=== PATIENT | female | born 1980 | race American Indian/Alaskan Native ===

== ENCOUNTER 2018-03-06 12:07 | Emergency (ER) | payer OTHER ==
--- NOTE | 2018-03-06 12:57 | Emergency Department Report ---
ED Lower Extremity HPI - General Chief Complaint: Extremity Injury, Lower Stated Complaint: LEFT LEG/PAIN Time Seen by Provider: 03/06/18 12:48 Source: patient Mode of arrival: Ambulatory Limitations: No Limitations - History of Present Illness Initial Comments: Patient is a 37-year-old female with no significant past medical history. Patient presented to the ER complaining of left leg pain as being on for 1 week. Patient stated that she has been small injury when she stepped on something one week ago and since then she started having the pain she also stated that she is worried about blood clots she went to her primary care physician was advised to get ultrasound. Patient denied any fever, nausea or vomiting. No shortness of breath or chest pain. - Related Data Allergies Allergy/AdvReac Type Severity Reaction Status Date / Time No Known Allergies Allergy Unverified 03/06/18 12:12 ED Review of Systems ROS: Stated complaint: LEFT LEG/PAIN Other details as noted in HPI Comment: All other systems reviewed and negative Respiratory: denies: cough, shortness of breath, SOB with exertion Cardiovascular: denies: chest pain, palpitations Gastrointestinal: denies: abdominal pain, nausea Neurological: denies: headache, weakness ED Past Medical Hx - Past Medical History Hx Psychiatric Treatment: Yes Additional medical history: anemia, celiac, hypotension - Surgical History Additional Surgical History: C/S - Social History Smoking Status: Never Smoker Substance Use Type: None ED Physical Exam - General Limitations: No Limitations General appearance: alert, in no apparent distress - Head Head exam: Present: atraumatic, normocephalic - ENT ENT exam: Present: normal exam, normal orophraynx, mucous membranes moist - Neck Neck exam: Present: normal inspection, full ROM. Absent: tenderness, meningismus, lymphadenopathy - Respiratory Respiratory exam: Present: normal lung sounds bilaterally. Absent: wheezes, rales, prolonged expiratory - Cardiovascular Cardiovascular Exam: Present: regular rate, normal heart sounds - GI/Abdominal GI/Abdominal exam: Present: soft. Absent: distended, tenderness, guarding, rebound - Extremities Exam Extremities exam: Present: normal inspection, full ROM, normal capillary refill. Absent: tenderness, pedal edema, calf tenderness - Back Exam Back exam: Present: normal inspection, full ROM - Neurological Exam Neurological exam: Present: alert, oriented X3, CN II-XII intact, normal gait - Skin Skin exam: Present: warm, intact, normal color ED Course Vital Signs 03/06/18 03/06/18 03/06/18 12:12 13:26 13:30 Temperature 99.1 F Pulse Rate 117 H 71 84 Respiratory 16 15 19 Rate Blood Pressure 106/76 115/76 O2 Sat by Pulse 100 100 Oximetry 03/06/18 03/06/18 03/06/18 13:45 14:00 14:15 Temperature Pulse Rate 74 74 69 Respiratory 28 H 23 16 Rate Blood Pressure 107/73 111/78 111/75 O2 Sat by Pulse 99 100 100 Oximetry 03/06/18 03/06/18 14:30 14:45 Temperature Pulse Rate 70 Respiratory 17 21 Rate Blood Pressure 114/76 126/81 O2 Sat by Pulse 100 99 Oximetry ED Lower Extremity MDM - Medical Decision Making Patient d-dimer is negative. Believe this is most likely an infection from her region. Given this patient low low probability and a negative d-dimer, I believe DVT is unlikely. I will start patient on Keflex and advised patient to follow up with her primary care physician and to return to the ER if her symptoms return. Critical care attestation.: If time is entered above; I have spent that time in minutes in the direct care of this critically ill patient, excluding procedure time. ED Disposition Clinical Impression: Left leg pain Disposition: DC-01 TO HOME OR SELFCARE Is pt being admited?: No Condition: Stable Instructions: Musculoskeletal Pain (ED) Referrals: PRIMARY CARE, [Primary Care Provider] - 3-5 Days
[2018-03-06 15:03] VITALS: BP 126/81
== END 2018-03-06 16:39 | disposition home or self-care (01) ==
LOC: ED 12:07
DX: M79.605 Pain in left leg (principal)
CPT/HCPCS: 36415; 85379

== ENCOUNTER 2020-08-28 15:32 | Emergency (ER) | payer BC ==
[2020-08-28 15:43] VITALS: BP 128/71
--- NOTE | 2020-08-28 16:35 | Cat Scan Report ---
. CT head/brain wo con INDICATION / CLINICAL INFORMATION: 40 years Female; head injury. TECHNIQUE: Routine CT head without contrast. All CT scans at this location are performed using CT dos e reduction for ALARA by means of automated exposure control. COMPARISON: None. FINDINGS: BRAIN / INTRACRANIAL CONTENTS: The brain appears to demonstrate appropriate attenuation. The ventricu lar system is within normal limits in size and configuration. There is no clear CT evidence of acute intracranial hemorrhage or significant mass effect. ORBITS: No significant abnormality of visualized orbits. SINUSES / MASTOIDS: No significant abnormality in the visualized paranasal sinuses or mastoid air carmina ls. CRANIOCERVICAL JUNCTION: No significant abnormality. ADDITIONAL FINDINGS: None. IMPRESSION: 1. There is no CT evidence of acute intracranial process. Signer Name: Marek Castellano MD Signed: 08/28/2020 4:30 PM Workstation Name: [id number]
[2020-08-28] MEDS ORDERED: METOCLOPRAMIDE 10 MG TAB PO ONE (18:27)
[2020-08-28] MEDS ORDERED: ACETAMINOPHEN 500 MG TAB PO ONE (18:27)
[2020-08-28] MEDS ORDERED: diphenhydrAMINE 25 MG CAP PO ONE (18:27)
[2020-08-28] MEDS ORDERED: dexAMETHasone 20 MG/5 ML VIAL IM ONE (18:27)
--- NOTE | 2020-08-28 18:32 | Emergency Department Report ---
ED General Adult HPI - General Chief complaint: Head Injury Stated complaint: HEAD INJURY Source: patient Mode of arrival: Ambulatory Limitations: No Limitations - History of Present Illness Initial comments: Patient is a 40-year-old -[place] female who presents for frontal headache and neck pain status post closed blunt head trauma 1 week ago. Patient states her trunk fell on her head. There was no LOC at the time, no laceration, no bleeding, there has been no nausea /vomiting, patient does complain of headache with intermittent dizziness dizziness, and mild photophobia. Symptoms rated at 4/10. 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 Patient drove self to ED, patient is ambulatory with steady gait. Patient is alert and oriented x3. States headache is intermittent and recurrent, symptoms temporarily improved with Tylenol products. - Related Data Previous Rx's Medication Instructions Recorded Last Taken Type cephALEXin [Keflex] 500 mg PO Q8HR #28 cap 03/06/18 Unknown Rx Cyclobenzaprine [Flexeril 10 MG 10 mg PO BID #20 tablet 09/11/19 Unknown Rx TAB] Naproxen [Naprosyn TAB] 500 mg PO BID #30 tablet 09/11/19 Unknown Rx Acetaminophen [Acetaminophen TAB] 1,000 mg PO Q6HR PRN #30 tablet 08/28/20 Unknown Rx Metoclopramide [Reglan] 10 mg PO Q8H PRN #30 tab 08/28/20 Unknown Rx diphenhydrAMINE [Benadryl CAP] 25 mg PO Q8HR PRN #30 capsule 08/28/20 Unknown Rx Allergies Allergy/AdvReac Type Severity Reaction Status Date / Time No Known Allergies Allergy Unverified 03/06/18 12:12 ED Review of Systems ROS: Stated complaint: HEAD INJURY Other details as noted in HPI Constitutional: denies: chills, fever Eyes: eye pain (bilat photophobia ) ENT: denies: ear pain, throat pain Respiratory: denies: cough, shortness of breath, wheezing Cardiovascular: denies: chest pain, palpitations Endocrine: no symptoms reported Gastrointestinal: denies: abdominal pain, nausea, vomiting, diarrhea Genitourinary: denies: urgency, dysuria, discharge Musculoskeletal: denies: back pain, joint swelling, arthralgia Skin: denies: rash, lesions Neurological: headache, weakness, vertigo. denies: numbness, paresthesias, confusion, abnormal gait Psychiatric: denies: anxiety, depression Hematological/Lymphatic: denies: easy bleeding, easy bruising ED Past Medical Hx - Past Medical History Previous Medical History?: Yes Hx Psychiatric Treatment: Yes Additional medical history: anemia, celiac, hypotension, pericarditis - Surgical History Past Surgical History?: Yes Additional Surgical History: C section - Social History Smoking Status: Never Smoker Substance Use Type: None - Medications Home Medications: Home Medications Medication Instructions Recorded Confirmed Last Taken Type cephALEXin [Keflex] 500 mg PO Q8HR #28 cap 03/06/18 Unknown Rx Cyclobenzaprine [Flexeril 10 MG 10 mg PO BID #20 tablet 09/11/19 Unknown Rx TAB] Naproxen [Naprosyn TAB] 500 mg PO BID #30 tablet 09/11/19 Unknown Rx Acetaminophen [Acetaminophen TAB] 1,000 mg PO Q6HR PRN #30 tablet 08/28/20 Unknown Rx Metoclopramide [Reglan] 10 mg PO Q8H PRN #30 tab 08/28/20 Unknown Rx diphenhydrAMINE [Benadryl CAP] 25 mg PO Q8HR PRN #30 capsule 08/28/20 Unknown Rx ED Physical Exam - General Limitations: No Limitations General appearance: alert, in no apparent distress - Head Head exam: Present: normocephalic, normal inspection - Expanded Head Exam Expanded Head exam: Present: contusion (frontal ). Absent: laceration, abrasion, hematoma, racoon eyes, ferrer's sign, general tenderness, tenderness of temporal artery - Eye Eye exam: Present: PERRL, EOMI. Absent: conjunctival injection, nystagmus Pupils: Present: normal accommodation - ENT ENT exam: Present: normal orophraynx, mucous membranes moist, TM's normal bilaterally, normal external ear exam - Neck Neck exam: Present: normal inspection, tenderness (right lateral paraspinus muscle tenderness to deep palpation, rom intact and unrestricted to all quads. no posterior vertebral point tenderness ), full ROM - Expanded Neck Exam Expanded Neck exam: Absent: midline deformity, anterior neck swelling, thyroid mass, carotid bruit, tracheal deviation - Respiratory Respiratory exam: Present: normal lung sounds bilaterally. Absent: respiratory distress, wheezes, chest wall tenderness - Cardiovascular Cardiovascular Exam: Present: regular rate, normal rhythm, normal heart sounds. Absent: systolic murmur, diastolic murmur, rubs, gallop - GI/Abdominal GI/Abdominal exam: Present: soft, normal bowel sounds. Absent: distended, tenderness - Rectal Rectal exam: Present: deferred - Extremities Exam Extremities exam: Present: normal inspection, full ROM, normal capillary refill. Absent: tenderness - Back Exam Back exam: Present: normal inspection, full ROM, muscle spasm. Absent: tenderness, paraspinal tenderness, vertebral tenderness - Neurological Exam Neurological exam: Present: alert, oriented X3, CN II-XII intact, normal gait, reflexes normal. Absent: motor sensory deficit - Expanded Neurological Exam Expanded Patient oriented to: Present: person, place, time Speech: Present: fluid speech Upper motor neuron: Pronator Drift: Normal Motor strength exam: RUE: 5, LUE: 5, RLE: 5, LLE: 5 DTR: knee (R): 2+, knee (L): 2+ Best Eye Response ([place]): (4) open spontaneously Best Motor Response ([place]): (6) obeys commands Best Verbal Response ([place]): (5) oriented Joce Total: 15 - Psychiatric Psychiatric exam: Present: normal affect, normal mood - Skin Skin exam: Present: warm, dry, intact, normal color. Absent: rash ED Course Vital Signs 08/28/20 15:40 Temperature 98.1 F Pulse Rate 103 H Respiratory 18 Rate Blood Pressure 128/71 O2 Sat by Pulse 100 Oximetry ED Medical Decision Making - Radiology Data Radiology results: report reviewed, image reviewed . CT head/brain wo con INDICATION / CLINICAL INFORMATION: 40 years Female; head injury. TECHNIQUE: Routine CT head without contrast. All CT scans at this location are performed using CT dose reduction for ALARA by means of automated exposure control. COMPARISON: None. FINDINGS: BRAIN / INTRACRANIAL CONTENTS: The brain appears to demonstrate appropriate attenuation. The ventricular system is within normal limits in size and configuration. There is no clear CT evidence of acute intracranial hemorrhage or significant mass effect. ORBITS: No significant abnormality of visualized orbits. SINUSES / MASTOIDS: No significant abnormality in the visualized paranasal sinuses or mastoid air cells. CRANIOCERVICAL JUNCTION: No significant abnormality. ADDITIONAL FINDINGS: None. IMPRESSION: 1. There is no CT evidence of acute intracranial process. Signer Name: Marek Castellano MD Signed: 08/28/2020 4:30 PM Workstation Name: [id number] Transcribed By: MR Dictated By: Marek Castellano MD Electronically Authenticated By: Marek Castellano MD Signed Date/Time: 08/28/20 163 DD/ 26 TD/TT: FINDINGS: No soft tissue swelling is seen. No fractures or subluxation are noted. Disc spaces are maintained. Odontoid is not well seen on odontoid projection despite 2 attempts. Signer Name: Dakota Graham MD Signed: 08/28/2020 6:57 PM Workstation Name: [id number] Transcribed By: GJ Dictated By: Dakota Graham MD Electronically Authenticated By: Dakota Graham MD Signed Date/Time: 08/28/201856 DD/ 54 TD/TT: - Medical Decision Making CT normal no soft abnormality, C-spine x-ray normal no fracture no soft tissue abnormality. Tissue no mass no bleed. Plan DC to home follow-up with PCP in 2 to 3 days. Patient given closed head injury precautions. Neuro exam is normal headache is improved. Patient is alert oriented x3 with steady gait with no acute distress at this time patient DC'd home in stable condition. at 1900 hrs , pt is DNA x 3 , LWT, did not answer phone contact attempt. Critical care attestation.: If time is entered above; I have spent that time in minutes in the direct care of this critically ill patient, excluding procedure time. ED Disposition Clinical Impression: Headache Qualifiers: Headache type: unspecified Headache chronicity pattern: acute headache Intractability: not intractable Qualified Code(s): R51.9 - Headache, unspecified Minor head injury without loss of consciousness Qualifiers: Encounter type: initial encounter Qualified Code(s): S09.90XA - Unspecified injury of head, initial encounter Disposition: ELOPED Is pt being admited?: No Does the pt Need Aspirin: No Condition: Stable Instructions: Cluster Headache Prescriptions: Acetaminophen [Acetaminophen TAB] 1,000 mg PO Q6HR PRN #30 tablet PRN Reason: Headache diphenhydrAMINE [Benadryl CAP] 25 mg PO Q8HR PRN #30 capsule PRN Reason: Headache Metoclopramide [Reglan] 10 mg PO Q8H PRN #30 tab PRN Reason: Headache Referrals: QUINCY GUERRERO MD [Primary Care Provider] - 3-5 Days Forms: Work/School Release Form(ED) Time of Disposition: 19:00
--- NOTE | 2020-08-28 19:01 | XRay Report ---
CERVICAL SPINE 3 VIEWS 1849 INDICATION: neck pain s/p closed head injury COMPARISON: None available. FINDINGS: No soft tissue swelling is seen. No fractures or subluxation are noted. Disc spaces are kelsey ntained. Odontoid is not well seen on odontoid projection despite 2 attempts. Signer Name: Dakota Graham MD Signed: 08/28/2020 6:57 PM Workstation Name: [id number]
== END 2020-08-28 20:45 | disposition left against medical advice (07) ==
LOC: ED 15:32
DX: S09.90XA Unspecified injury of head, initial encounter (principal); Z79.899 Other long term (current) drug therapy; W19.XXXA Unspecified fall, initial encounter; Y93.89 Activity, other specified; Y92.89 Other specified places as the place of occurrence of the external cause; Y99.8 Other external cause status
CPT/HCPCS: 70450; 72040; 99283

== ENCOUNTER 2021-01-15 16:23 | Emergency (ER) | payer BC ==
[2021-01-15 16:36] VITALS: BP 114/71
--- NOTE | 2021-01-15 18:11 | Event Note ---
ED Screening Note Date of service: 01/15/21 Time: 18:09 ED Screening Note: 10-year-old female was brought to the ER today by EMS with complaints of chest pain. Patient reports pain on her left breast and to upper abdomen. She states that she has had this pain for several years but it got worse today while she was at her doctor's office and her doctor's office called 911 to be brought here to the ER. Patient states that since has been having the pain for the past several years she was told by her primary care doctor that her pain could be related to pericarditis and that was in 2016. She did see a liquefaction plant operator once recommended doing a stress test and echo but she states due to lack of insurance she did not follow-up to have the test done. She states that she has been ill with the pain with ibuprofen. In addition to the worsening chest pain today she reports nausea but she also has a history of chronic nausea which she takes Phenergan for, she reports a little bit of a cough and daily shortness of breath no worse today and lightheadedness today. Past medical history significant for hypertension, chronic back pain secondary to sciatica and chronic nausea. This initial assessment/diagnostic orders/clinical plan/treatment(s) is/are subject to change based on patients health status, clinical progression and re- assessment by fellow clinical providers in the ED. Further treatment and workup at subsequent clinical providers discretion. Patient/guardian urged not to elope from the ED as their condition may be serious if not clinically assessed and managed. Initial orders include: Chest pain order set
[2021-01-15 18:36] LABS: Basophils % (Auto) 0.7 % (0.0-1.8); Eosinophils # (Auto) 0.1 K/mm3 (0.0-0.4); Eosinophils % (Auto) 1.1 % (0.0-4.3); Hematocrit 28.2 % (30.3-42.9); Hemoglobin 8.6 gm/dl (10.1-14.3); Lymphocytes # (Auto) 1.5 K/mm3 (1.2-5.4); Lymphocytes % (Auto) 22.4 % (13.4-35.0); Mean Corpuscular HGB Conc 31 % (30-34); Monocytes # (Auto) 0.3 K/mm3 (0.0-0.8); Monocytes % (Auto) 4.6 % (0.0-7.3); Platelet Count 355 K/mm3 (140-440); Red Blood Count 4.25 M/mm3 (3.65-5.03); Red Cell Distribution Width 19.8 % (13.2-15.2)
[2021-01-15 18:45] LABS: Mean Corpuscular Volume 66 fl (79-97)
--- NOTE | 2021-01-15 18:53 | XRay Report ---
CHEST 2 VIEWS INDICATION / CLINICAL INFORMATION: Chest Pain. FINDINGS: SUPPORT DEVICES: None. HEART / MEDIASTINUM: No significant abnormality. LUNGS / PLEURA: No significant pulmonary or pleural abnormality. No pneumothorax. ADDITIONAL FINDINGS: No significant additional findings. IMPRESSION: 1. No acute findings. Signer Name: Lorenzo Pearson MD Signed: 01/15/2021 6:48 PM Workstation Name: [id number]
[2021-01-15 18:55] LABS: Alanine Aminotransferase 21 units/L (7-56); Albumin 4.6 g/dL (3.9-5); Blood Urea Nitrogen 11 mg/dL (7-17); Calcium 8.6 mg/dL (8.4-10.2); Hemolysis Index 0; INR 0.92 (0.87-1.13); Partial Thromboplastin Time 27.5 Sec. (24.2-36.6)
[2021-01-15 18:56] LABS: BUN/Creatinine Ratio 18
--- NOTE | 2021-01-15 21:23 | Emergency Department Report ---
ED Chest Pain HPI - General Chief Complaint: Chest Pain Stated Complaint: CHEST DISCOMFORT Time Seen by Provider: 01/15/21 21:02 Source: patient Mode of arrival: Ambulatory Limitations: No Limitations - History of Present Illness Initial Comments: 40-year-old -[place] female presents emerged department complaining of chest pain which has been present for multiple years more than 3 and she was evaluated at her doctor's office today for routine check and was found to have a possible hemoglobin around 7. She reports no vaginal bleeding, no easy bruising, no pain is bleeding, no palpitation, shortness of breath, presyncope, fever, chills, sweats. MD Complaint: chest pain Severity scale (0 -10): 8 - Related Data Previous Rx's Medication Instructions Recorded Last Taken Type cephALEXin [Keflex] 500 mg PO Q8HR #28 cap 03/06/18 Unknown Rx Cyclobenzaprine [Flexeril 10 MG 10 mg PO BID #20 tablet 09/11/19 Unknown Rx TAB] Naproxen [Naprosyn TAB] 500 mg PO BID #30 tablet 09/11/19 Unknown Rx Acetaminophen [Acetaminophen TAB] 1,000 mg PO Q6HR PRN #30 tablet 08/28/20 Unknown Rx Metoclopramide [Reglan] 10 mg PO Q8H PRN #30 tab 08/28/20 Unknown Rx diphenhydrAMINE [Benadryl CAP] 25 mg PO Q8HR PRN #30 capsule 08/28/20 Unknown Rx Allergies Allergy/AdvReac Type Severity Reaction Status Date / Time No Known Allergies Allergy Unverified 03/06/18 12:12 Heart Score - HEART Score History: Slightly suspicious EKG: Normal Age: < 45 Risk factors: 1-2 risk factors Troponin: < normal limit HEART Score: 1 - EKG Read Time Time EKG Completed: 16:48 EKG Read Time: 16:57 ED Review of Systems ROS: Stated complaint: CHEST DISCOMFORT Other details as noted in HPI Comment: All other systems reviewed and negative ED Past Medical Hx - Past Medical History Previous Medical History?: Yes Hx Psychiatric Treatment: Yes Additional medical history: anemia, celiac, hypotension, pericarditis - Surgical History Past Surgical History?: Yes Additional Surgical History: C section - Social History Smoking Status: Never Smoker Substance Use Type: None - Medications Home Medications: Home Medications Medication Instructions Recorded Confirmed Last Taken Type cephALEXin [Keflex] 500 mg PO Q8HR #28 cap 03/06/18 Unknown Rx Cyclobenzaprine [Flexeril 10 MG 10 mg PO BID #20 tablet 09/11/19 Unknown Rx TAB] Naproxen [Naprosyn TAB] 500 mg PO BID #30 tablet 09/11/19 Unknown Rx Acetaminophen [Acetaminophen TAB] 1,000 mg PO Q6HR PRN #30 tablet 08/28/20 Unknown Rx Metoclopramide [Reglan] 10 mg PO Q8H PRN #30 tab 08/28/20 Unknown Rx diphenhydrAMINE [Benadryl CAP] 25 mg PO Q8HR PRN #30 capsule 08/28/20 Unknown Rx ED Physical Exam - General Limitations: No Limitations General appearance: alert, in no apparent distress - Head Head exam: Present: atraumatic, normocephalic - Eye Eye exam: Present: normal appearance, PERRL, EOMI Pupils: Present: normal accommodation - ENT ENT exam: Present: mucous membranes moist - Neck Neck exam: Present: normal inspection - Respiratory Respiratory exam: Present: normal lung sounds bilaterally. Absent: respiratory distress, chest wall tenderness - Cardiovascular Cardiovascular Exam: Present: regular rate, normal rhythm. Absent: systolic murmur, diastolic murmur, rubs, gallop - GI/Abdominal GI/Abdominal exam: Present: soft, normal bowel sounds - Extremities Exam Extremities exam: Present: normal inspection - Back Exam Back exam: Present: normal inspection - Neurological Exam Neurological exam: Present: alert, oriented X3, CN II-XII intact, normal gait, motor sensory deficit - Psychiatric Psychiatric exam: Present: normal affect, normal mood, anxious - Skin Skin exam: Present: warm, dry, intact, normal color. Absent: rash ED Course Vital Signs 01/15/21 01/15/21 16:35 16:36 Temperature 99.3 F Pulse Rate 95 H Respiratory 18 Rate Blood Pressure 114/71 [Right] O2 Sat by Pulse 100 Oximetry JACOB score - Jacob Score Age > 65: (0) No Aspirin use within the Past 7 Days: (0) No 3 or more CAD Risk Factors: (0) No 2 or more Angina events in past 24 hrs: (0) No Known CAD with more than 50% Stenosis: (0) No Elevated Cardiac Markers: (0) No ST Deviation Greater than 0.5mm: (0) No JACOB Score: 0 ED Medical Decision Making - Lab Data Result diagrams: 01/15/21 18:13 01/15/21 18:13 - EKG Data EKG shows normal: sinus rhythm Rate: normal - EKG Data When compared to previous EKG there are: no significant change Interpretation: normal EKG - Radiology Data Radiology results: report reviewed [address] [place] [address] XRay Report Signed Patient: MARIKA SOLOMON MR#: [id number] 2 : 1980 Acct:[id number] Age/Sex: 40 / F ADM Date: 01/15/21 Loc: ED Attending Dr: Ordering Physician: HANSEL OSEI Date of Service: 01/15/21 Procedure(s): XR chest routine 2V Accession Number(s): [id number] cc: HANSEL OSEI Fluoro Time In Minutes: CHEST 2 VIEWS INDICATION / CLINICAL INFORMATION: Chest Pain. FINDINGS: SUPPORT DEVICES: None. HEART / MEDIASTINUM: No significant abnormality. LUNGS / PLEURA: No significant pulmonary or pleural abnormality. No pneumothorax. ADDITIONAL FINDINGS: No significant additional findings. IMPRESSION: 1. No acute findings. Signer Name: Lorenzo Pearson MD Signed: 01/15/2021 6:48 PM Workstation Name: [id number] Transcribed By: BC Dictated By: Lorenzo Pearson MD Electronically Authenticated By: Lorenzo Pearson MD Signed Date/Time: 01/15/211847 DD/ 47 TD/TT: Print Cancel - Medical Decision Making This patient presents with chest pain that is very unlikely angina or acute coronary syndrome. The emergency department evaluation has not identified any cause for suspicion that this chest pain has a cardiac etiology. Based on their history, EKG (which showed no evidence of ischemia or infarction) and imaging, i n addition to the patient's physical exam, I see no evidence at this time for a malignant etiology for the patient's chest pain. There is no acute evidence for pulmonary embolus, acute myocardial infarction, pneumothorax, Boerhaeve syndrome, cardiac tamponade, thoracic artery dissection, or any other emergent cardiac, pulmonary or aortic pathology. Given the low pre-test probability for cardiac etiology of chest pain and the absence of any sign of ischemia or infarction, discharge for outpatient follow-up and further evaluation is reasonable. I have explained to the patient that even though a cardiac problem is very unlikely, follow-up and further testing is required to reduce further the a lready small uncertainty that exists. Other life-threatening diagnoses have been considered. The patient understands the need to return immediately if their symptoms worsen or they develop any new symptoms, and not to engage in any significant exertional activity until follow-up is obtained. This patient presents with symptoms consistent with acute anxiety reaction/panic attack. Low suspicion for acute coronary process including ACS, pulmonary embolism, thoracic aortic dissection. Denies any ingestions or any other medical complaints. No evidence of alcohol withdrawal symptoms. Presentation not consistent with overt toxic syndrome, ingestion given history and physical. Presentation not consistent with organic or medical emergency at this time. No acute indication for psychiatric consultation. Cautious return precautions discussed with full understanding Plan: Medication, psych follow-up PRN Critical care attestation.: If time is entered above; I have spent that time in minutes in the direct care of this critically ill patient, excluding procedure time. ED Disposition Clinical Impression: Chest pain with normal EKG, Anxiety Disposition: DC-01 TO HOME OR SELFCARE Is pt being admited?: No Does the pt Need Aspirin: No Condition: Stable Instructions: Nonspecific Chest Pain, Adult, Supporting Someone With Anxiety, Managing Anxiety, Adult Referrals: [facility] [Provider Group] - 3-5 Days PRIMARY MD LAUREL [Primary Care Provider] - 3-5 Days FRED SANDERS MD [Staff Physician] - 3-5 Days
[2021-01-15 21:25] LABS: Amphetamine Screen,Urine Negative; Benzodiazepines Screen,Urine Negative; Cannabinoid Screen,Urine Negative; Cocaine Screen,Urine Negative; Methadone Screen,Urine Negative; Opiate Screen,Urine Negative
--- NOTE | 2021-01-16 10:16 | Electrocardiograph Report ---
[facility] Test Date: 2021-01-15 Test Time: 16:48:22 Pat Name: MARIKA SOLOMON Department: Room: Gender: F Surgical Technologist: DENIS : 1980 Requested By: HANSEL OSEI Order Number: [id number] Reading MD: Chris Marie Measurements Intervals [place] Rate: 99 P: 79 TN: 161 QRS: 66 QRSD: 77 T: 58 QT: 346 QTc: 444 Interpretive Statements Sinus rhythm No previous ECG available for comparison Electronically Signed On 01-16-2021 10:15:46 EDT by Chris Marie
== END 2021-01-15 21:29 | disposition home or self-care (01) ==
LOC: ED 16:23
DX: R07.89 Other chest pain (principal); F41.9 Anxiety disorder, unspecified; Z98.890 Other specified postprocedural states; Z79.899 Other long term (current) drug therapy
CPT/HCPCS: 36415; 71046; 80053; 80307; 83690; 84484; 85025; 85610; 85730; 93005

== ENCOUNTER 2022-04-22 08:39 | Emergency (ER) | payer BC ==
--- NOTE | 2022-04-22 09:22 | XRay Report ---
CHEST 2 VIEWS INDICATION / CLINICAL INFORMATION: Chest Pain. COMPARISON: 01/15/2021 FINDINGS: SUPPORT DEVICES: None. HEART / MEDIASTINUM: No significant abnormality. LUNGS / PLEURA: No significant pulmonary or pleural abnormality. No pneumothorax. ADDITIONAL FINDINGS: No significant additional findings. IMPRESSION: 1. No acute findings. Signer Name: Jonathan Poole Jr, MD Signed: 04/22/2022 9:18 AM Workstation Name: [id number]
--- NOTE | 2022-04-22 09:36 | Electrocardiograph Report ---
[facility] Test Date: 2022-04-22 Test Time: 08:51:05 Pat Name: MARIKA SOLOMON Department: Room: Gender: F Japanese Interpreter: BENITO : 1980 Requested By: ED DOC Order Number: [id number] Reading MD: González Staples Measurements Intervals [place] Rate: 104 P: 73 [place]: 158 QRS: 75 QRSD: 70 T: 64 QT: 320 QTc: 422 Interpretive Statements Sinus tachycardia Compared to ECG 01/15/2021 16:48:22 Sinus rhythm no longer present Electronically Signed On 04-22-2022 9:35:50 EDT by González Staples
[2022-04-22 10:03] LABS: Basophils # (Auto) 0.1 K/mm3 (0.0-0.1); Basophils % (Auto) 0.9 % (0.0-1.8); Eosinophils # (Auto) 0.3 K/mm3 (0.0-0.4); Eosinophils % (Auto) 5.3 % (0.0-4.3); Hematocrit 26.1 % (30.3-42.9); Hemoglobin 7.8 gm/dl (10.1-14.3); Lymphocytes # (Auto) 1.6 K/mm3 (1.2-5.4); Lymphocytes % (Auto) 26.2 % (13.4-35.0); Mean Corpuscular HGB Conc 30 % (30-34); Monocytes # (Auto) 0.4 K/mm3 (0.0-0.8); Monocytes % (Auto) 6.5 % (0.0-7.3); Red Blood Count 4.06 M/mm3 (3.65-5.03); Red Cell Distribution Width 19.9 % (13.2-15.2)
[2022-04-22 10:06] LABS: Mean Corpuscular Volume 64 fl (79-97)
[2022-04-22 10:09] LABS: INR 0.93 (0.87-1.13); Partial Thromboplastin Time 25.6 Sec. (24.2-36.6)
[2022-04-22 10:21] LABS: Alanine Aminotransferase 10 units/L (7-56); Albumin 4.5 g/dL (3.9-5); Blood Urea Nitrogen 11 mg/dL (7-17); Calcium 9.6 mg/dL (8.4-10.2); Hemolysis Index 0
[2022-04-22 10:22] LABS: BUN/Creatinine Ratio 16
[2022-04-22 10:41] LABS: Platelet Count 300 K/mm3 (140-440)
--- NOTE | 2022-04-22 11:29 | Emergency Department Report ---
ED General Adult HPI - General Chief complaint: Pain General Stated complaint: Chest wall pain and bad news Time Seen by Provider: 04/22/22 11:26 Source: patient, RN notes reviewed, old records reviewed Mode of arrival: Ambulatory Limitations: No Limitations - History of Present Illness Initial comments: The patient was evaluated in the emergency department for symptoms described in the history of present illness. He/she was evaluated in the context of the global COVID-19 pandemic, which necessitated consideration that the patient might be at risk for infection with the virus that causes COVID-19. Institutional protocols and algorithms that pertain to the evaluation of patients at risk for COVID-19 are in a state of rapid change based on infor mation released by regulatory bodies including the CDC and federal and state organizations. These policies and algorithms were followed during the patient's care in the emergency department. Please note that these policies, procedures and recommendations changed on a rapid basis. During the history and physical examination I am chaperoned by nurse Dianelys Feliciano This is a 41-year-old female, who states that she is left-hand dominant, who reports that she is not . She works as a nurse [employer]. She denies travel, surgery, immobilization, DVT and pulmonary embolism risk factors. She reports that she recently got some bad news, that she has been having left-sided chest wall pain, with associated left trapezius pain, and left arm weakness. She endorses some anxiety. She currently denies severe headache, midline neck pain, lower abdominal pain, vomiting, diaphoresis and exertional shortness of breath. She denies a personal/family history of DVT and PE. One of her parents may have had a history of heart disease, but she is not sure. She only took Goody powder [id number] for pain She reports a history of chronic fibroids, and does not have a local counter hand. She currently denies hematemesis, bright red blood per rectum Her chest wall pain does not radiate to the back, arms or neck. There is no vomiting, diaphoresis, or exertional shortness of breath. The chest wall pain is present for a few days -: days(s) Location: neck, chest, left, upper extremity Severity scale (0 -10): 10 Quality: aching Consistency: constant Improves with: rest Worsens with: movement (Movement, palpation and range of motion) - Related Data Previous Rx's Medication Instructions Recorded Last Taken Type cephALEXin [Keflex] 500 mg PO Q8HR #28 cap 03/06/18 Unknown Rx Naproxen [Naprosyn TAB] 500 mg PO BID #30 tablet 09/11/19 Unknown Rx Acetaminophen [Acetaminophen TAB] 1,000 mg PO Q6HR PRN #30 tablet 08/28/20 Unknown Rx Metoclopramide [Reglan] 10 mg PO Q8H PRN #30 tab 08/28/20 Unknown Rx diphenhydrAMINE [Benadryl CAP] 25 mg PO Q8HR PRN #30 capsule 08/28/20 Unknown Rx Acetaminophen [Non-Aspirin Extra 500 mg PO Q6HR PRN #30 tablet 04/22/22 Unknown Rx Strength] Ferrous Sulfate [Iron 325 MG] 325 mg PO BID #60 tab 04/22/22 Unknown Rx Ibuprofen [Motrin] 400 mg PO Q8H PRN #30 tablet 04/22/22 Unknown Rx Allergies Allergy/AdvReac Type Severity Reaction Status Date / Time No Known Allergies Allergy Verified 04/22/22 08:46 ED Review of Systems ROS: Stated complaint: HEART PAIN/BACK PAIN Other details as noted in HPI Constitutional: denies: fever Eyes: denies: eye discharge ENT: denies: epistaxis Respiratory: denies: cough, shortness of breath Cardiovascular: chest pain Gastrointestinal: denies: abdominal pain, nausea, vomiting, hematemesis, melena Genitourinary: other (Chronic heavy menstruation) Musculoskeletal: arthralgia, myalgia Neurological: other (Left arm achiness and numbness). denies: weakness Psychiatric: anxiety ED Past Medical Hx - Past Medical History Hx Psychiatric Treatment: Yes Additional medical history: anemia, celiac, hypotension, pericarditis - Surgical History Additional Surgical History: C section - Social History Smoking Status: Never Smoker Substance Use Type: None - Medications Home Medications: Home Medications Medication Instructions Recorded Confirmed Last Taken Type cephALEXin [Keflex] 500 mg PO Q8HR #28 cap 03/06/18 Unknown Rx Naproxen [Naprosyn TAB] 500 mg PO BID #30 tablet 09/11/19 Unknown Rx Acetaminophen [Acetaminophen TAB] 1,000 mg PO Q6HR PRN #30 tablet 08/28/20 Unknown Rx Metoclopramide [Reglan] 10 mg PO Q8H PRN #30 tab 08/28/20 Unknown Rx diphenhydrAMINE [Benadryl CAP] 25 mg PO Q8HR PRN #30 capsule 08/28/20 Unknown Rx Acetaminophen [Non-Aspirin Extra 500 mg PO Q6HR PRN #30 tablet 04/22/22 Unknown Rx Strength] Ferrous Sulfate [Iron 325 MG] 325 mg PO BID #60 tab 04/22/22 Unknown Rx Ibuprofen [Motrin] 400 mg PO Q8H PRN #30 tablet 04/22/22 Unknown Rx ED Physical Exam - General Limitations: No Limitations General appearance: alert, in no apparent distress - Head Head exam: Present: atraumatic, normocephalic - Eye Eye exam: Present: normal appearance, EOMI. Absent: nystagmus - ENT ENT exam: Present: normal exam, normal orophraynx, mucous membranes moist, normal external ear exam - Neck Neck exam: Present: normal inspection, full ROM. Absent: tenderness, meningismus - Respiratory Respiratory exam: Present: normal lung sounds bilaterally, chest wall tenderness. Absent: respiratory distress, wheezes, rales, rhonchi, stridor - Cardiovascular Cardiovascular Exam: Present: regular rate, normal rhythm, normal heart sounds. Absent: bradycardia, tachycardia, irregular rhythm, systolic murmur, diastolic murmur, rubs, gallop - GI/Abdominal GI/Abdominal exam: Present: soft, normal bowel sounds. Absent: distended, tenderness, guarding, rebound, rigid, pulsatile mass - Extremities Exam Extremities exam: Present: normal inspection, full ROM, other (2+ pulses noted in the bilateral upper and lower extremities. There is no palpable cord. negative Homans sign. Muscular compartments are soft. The pelvis is stable.). Absent: pedal edema, calf tenderness - Back Exam Back exam: Present: normal inspection, paraspinal tenderness (Reproducible trapezius tenderness). Absent: tenderness, CVA tenderness (R), CVA tenderness (L), vertebral tenderness - Neurological Exam Neurological exam: Present: alert, oriented X3, other (No facial droop. Tongue midline. Extraocular movements intact bilaterally. Facial sensation intact to light touch in V1, V2, V3 distribution bilaterally. 5 and a 5 strength in 4 extremities. Sensation intact to light touch in 4 extremities.). Absent: motor sensory deficit (Sensation is intact to light touch and pinch in the upper and lower extremities.) - Psychiatric Psychiatric exam: Present: anxious - Skin Skin exam: Present: warm, dry, intact, normal color. Absent: rash ED Course Vital Signs 04/22/22 04/22/22 04/22/22 08:43 11:25 11:39 Temperature 98.6 F 98.4 F 98.4 F Pulse Rate 107 H 88 74 Respiratory 20 18 18 Rate Blood Pressure 109/73 Blood Pressure 106/69 101/70 110/62 [Right] O2 Sat by Pulse 98 100 100 Oximetry ED Medical Decision Making - Lab Data Result diagrams: 04/22/22 09:05 04/22/22 09:05 Vital Signs 04/22/22 04/22/22 04/22/22 08:43 11:25 11:39 Temperature 98.6 F 98.4 F 98.4 F Pulse Rate 107 H 88 74 Respiratory 20 18 18 Rate Blood Pressure 109/73 Blood Pressure 106/69 101/70 110/62 [Right] O2 Sat by Pulse 98 100 100 Oximetry Lab Results 04/22/22 04/22/22 04/22/22 Range/Units 09:05 09:05 09:05 WBC 6.2 (4.5-11.0) K/mm3 RBC 4.06 (3.65-5.03) M/mm3 Hgb 7.8 L (10.1-14.3) gm/dl Hct 26.1 L (30.3-42.9) % MCV 64 L (79-97) fl MCH 19 L (28-32) pg MCHC 30 (30-34) % RDW 19.9 H (13.2-15.2) % Plt Count 300 (140-440) K/mm3 Lymph % (Auto) 26.2 (13.4-35.0) % [place] % (Auto) 6.5 (0.0-7.3) % Eos % (Auto) 5.3 H (0.0-4.3) % Baso % (Auto) 0.9 (0.0-1.8) % Lymph # (Auto) 1.6 (1.2-5.4) K/mm3 [place] # (Auto) 0.4 (0.0-0.8) K/mm3 Eos # (Auto) 0.3 (0.0-0.4) K/mm3 Baso # (Auto) 0.1 (0.0-0.1) K/mm3 Seg Neutrophils % 61.1 (40.0-70.0) % Seg Neutrophils # 3.8 (1.8-7.7) K/mm3 PT 13.5 (12.2-14.9) Sec. INR 0.93 (0.87-1.13) APTT 25.6 (24.2-36.6) Sec. Sodium 137 (137-145) mmol/L Potassium 4.5 (3.6-5.0) mmol/L Chloride 104.3 (98-107) mmol/L Carbon Dioxide 22 (22-30) mmol/L Anion Gap 15 mmol/L BUN 11 (7-17) mg/dL Creatinine 0.7 (0.6-1.2) mg/dL Estimated GFR > 60 ml/min BUN/Creatinine Ratio 16 % Glucose 91 (65-100) mg/dL Calcium 9.6 (8.4-10.2) mg/dL Total Bilirubin 0.20 (0.1-1.2) mg/dL AST 13 (5-40) units/L ALT 10 (7-56) units/L Alkaline Phosphatase 67 (35-129) units/L Troponin T < 0.010 (0.00-0.029) ng/mL Total Protein 7.6 (6.3-8.2) g/dL Albumin 4.5 (3.9-5) g/dL Albumin/Globulin Ratio 1.5 % - EKG Data 04/22/22 13:16 The EKG is interpreted at 09: 00 AM sinus rhythm, tachycardia, rate 104 bpm. Normal axis, normal P wave axis, high left ventricular voltage, and motion artifact. Unchanged from prior EKG. Not a STEMI - Radiology Data Radiology results: pending, report reviewed, image reviewed CHEST 2 VIEWS INDICATION / CLINICAL INFORMATION: Chest Pain. COMPARISON: 01/15/2021 FINDINGS: SUPPORT DEVICES: None. HEART / MEDIASTINUM: No significant abnormality. LUNGS / PLEURA: No significant pulmonary or pleural abnormality. No pneumothorax. ADDITIONAL FINDINGS: No significant additional findings. IMPRESSION: 1. No acute findings. Signer Name: Jonathan Poole Jr, MD Signed: 04/22/2022 8:18 AM Workstation Name: [id number] - Medical Decision Making Differential diagnosis, including but not limited to: Costochondritis, anxiety, conversion disorder, cervical radiculopathy Assessment and plan: 41-year-old female presenting with a few days of chest wall pain. The patient is not currently tachycardic, tachypneic or hypoxic, who denies DVT and pulmonary embolism risk factors, who is low risk by Wells criteria for pulmonary embolism, EKG unchanged from prior, troponin negative x1 in the context of days of symptoms, acute [place] is ruled out Patient has equal pulses in the upper and lower extremities, no pulsatile abdominal mass, and an unremarkable x-ray of the chest, therefore, aortic disease is very unlikely. Patient at low risk for major adverse cardiac event as per heart score. Patient also has reproducible left-sided chest wall tenderness. She is clinically sober, with a GCS of 15. She has no appreciable motor or sensory deficits on my examination. Anemia is chronic, and likely secondary to chronic fibroids. Patient on cell phone, and in no acute distress. Discussed natural history of costochondritis, as well as cervical radiculopathy. Rest, ice, compression, elevation, diet lifestyle m odifications, Tylenol, Motrin, iron sulfate supplementation, outpatient follow- up with primary care, and or gynecology. Return precautions are reviewed. All questions answered Critical care attestation.: If time is entered above; I have spent that time in minutes in the direct care of this critically ill patient, excluding procedure time. ED Disposition Clinical Impression: Chest wall pain, Microcytic anemia Disposition: 01 HOME / SELF CARE / HOMELESS Is pt being admited?: No Does the pt Need Aspirin: No Condition: Good Instructions: Costochondritis, Iron-Rich Diet Additional Instructions: Alternate ice packs and heat packs as needed for physical pain. Rest and avoid heavy lifting as well as strenuous physical activities. Follow- up with a primary care doctor or counter hand within the next 2 weeks. Alternate the prescribed Tylenol and ibuprofen as needed for physical pain. Consume an iron rich diet, including plenty of green vegetables, and lean protein. Exercise caution when taking the iron sulfate, this medication may cause constipation, abdominal pain, and black stool. Please return to the emergency room right away with new pain, worsened pain, migration of pain, projectile vomiting, change in mental status, confusion, inability tolerate liquid feeds, new, worsened or different symptoms not present on the initial emergency room evaluation Referrals: [facility] [Provider Group] - 3-5 Days [facility] [Provider Group] - 3-5 Days Forms: Work/School Release Form(ED) Heart Score - HEART Score History: Slightly suspicious EKG: Non-specific Age: < 45 Risk factors: 1-2 risk factors Troponin: < normal limit HEART Score: 2 - EKG Read Time Time EKG Completed: 09:00 EKG Read Time: 09:00 - Critical Actions Critical Actions: 0-3 pts:0.9-1.7%risk of adverse cardiac event.Candidate for discharge
[2022-04-22] MEDS ORDERED: ACETAMINOPHEN 500 MG TAB PO ONE (11:40)
[2022-04-22] MEDS ORDERED: IBUPROFEN 400 MG TAB PO ONE (11:40)
[2022-04-22 14:30] VITALS: BP 99/77
== END 2022-04-22 15:44 | disposition home or self-care (01) ==
LOC: ED 08:39
DX: R07.89 Other chest pain (principal); D64.9 Anemia, unspecified; Z98.890 Other specified postprocedural states; Z79.899 Other long term (current) drug therapy
CPT/HCPCS: 36415; 71046; 80053; 84484; 85025; 85610; 85730; 93005; 99284